=== PATIENT | male | born 1940 | race Caucasian/White ===

== ENCOUNTER 2018-02-28 12:00 | Emergency (ER) | payer BC ==
[2018-02-28] MEDS ORDERED: NS 1,000 ML IV ONE (12:32)
--- NOTE | 2018-02-28 12:32 | EDPHY ---
H & P Stated Complaint: dizziness x 2 days Time Seen by Provider: 02/28/18 12:32 HPI/ROS: HPI: This is a 77-year-old male who presents with Chief Complaint: Dizziness x2 days Location: Head Quality: Dizziness Duration: 2 days Signs and Symptoms: no fever, no nausea, no vomiting, no photophobia, no noise sensitivity, no neck stiffness, no ear pain, no tinnitus, no nasal congestion, no sinus pressure, no weakness, no radiation, no aura Timing: Acute, worse with changing positions from sitting to standing Severity: [id number] Context: Patient is generally healthy presents with 2 day history of the room spinning when he changes pressure positions from sitting to standing. He reports that he flew home on Friday from started [place], 2 week trip. He reports that Friday he felt fatigued consistent with jet leg but had no chest pain, palpitations, lightheadedness, vertigo at that time. He reports that he woke up in the middle the night unable to sleep went to get out of bed to taking Ambien and felt like the room was spinning. Symptoms resolved if he lies flat and improve with keeping still. Symptoms worsened with changing positions. denies any lower extremity swelling, chest pain or shortness of breath. Patient does complain of feeling cold and having night sweats but denies any fevers, cough, neck stiffness, headache. Modifying Factors: None Comment: ROS: see HPI Constitutional: No fever, no chills, no weight loss Eyes: No blurred vision Respiratory: No shortness of breath, no cough Cardiovascular: No chest pain, no palpitations Gastrointestinal: No nausea, no vomiting, no diarrhea, no hematemesis, no blood in stool Genitourinary: No dysuria, no blood in urine Extremities: No myalgias, no edema Neurologic: No weakness, no numbness Skin: No rashes, no petechiae Hematologic: No bruising, no bleeding MEDICAL/SURGICAL/SOCIAL HISTORY: Medical history: Insomnia Surgical history: Denies Social history: Never smoked. Family history noncontributory. CONSTITUTIONAL: Extremely polite and well-appearing elderly white male, appears younger than stated age, awake and alert, no obvious distress HEENT: Atraumatic and normocephalic, PERRL, EOMI. Nares patent; no rhinorrhea; no nasal mucosal edema. Tympanic membranes clear. Oropharynx clear, no exudate and moist pink mucosa. Airway patent. No lymphadenopathy. No meningismus. Cardiovascular: Normal S1/S2, regular rate, regular rhythm, without murmur rub or gallop. PULMONARY/CHEST: Symmetrical and nontender. Clear to auscultation bilaterally. Good air movement. No accessory muscle usage. ABDOMEN: Soft, nondistended, nontender, no rebound, no guarding, no peritoneal signs, no masses or organomegaly. No CVAT. EXTREMITIES: 2/2 pulses, strength 5/5, no deformities, no clubbing, no cyanosis or edema. NEUROLOGICAL: no focal neuro deficits. GCS 15. Dizziness reproduced with Greenfield- Hallpike maneuver. Nystagmus noted. SKIN: Warm and dry, no erythema. no rash. Good capillary refill. Source: Patient Exam Limitations: No limitations - Medical/Surgical History Hx Asthma: No Hx Chronic Respiratory Disease: No Hx Diabetes: No Hx Cardiac Disease: No Hx Renal Disease: No Hx Cirrhosis: No Hx Alcoholism: No Hx HIV/AIDS: No Hx Splenectomy or Spleen Trauma: No Other PMH: denies - Social History Smoking Status: Never smoked Constitutional: Initial Vital Signs Temperature (C) 36.8 C 02/28/18 12:02 Heart Rate 56 L 02/28/18 12:02 Respiratory Rate 18 02/28/18 12:02 Blood Pressure 149/77 H 02/28/18 12:02 O2 Sat (%) 97 02/28/18 12:02 O2 Delivery Mode Room Air Allergies/Adverse Reactions: Penicillins Allergy (Verified 02/28/18 12:01) Home Medications: Medication Instructions Recorded Ethan 02/28/18 Meclizine HCl [Meclizine HCl 25 mg 25 mg PO Q4 #12 tab 02/28/18 (RX,OTC)] Medical Decision Making - Diagnostics EKG Interpretation: 12 lead EKG: Indication: Dizziness Rhythm: Sinus bradycardia, rate 50 beats per minute Willis: Normal Intervals: Normal QRS: RBBB ST segments: Normal INTERPRETATION: 1st degree AV block, no acute ischemic changes The 12 lead EKG was interpreted by myself and with attending. ED Course/Re-evaluation: EKG, labs, IV fluids, orthostatics ordered Vital signs stable upon arrival. No systemic signs. No signs of otitis media, sinusitis, pharyngitis, viral syndrome. EKG my read with attending shows heart rate in the 50s with right bundle-branch block. no EKG for comparison. No acute ischemic changes. 1310: Notified that i-STAT troponin is negative Orthostatics negative Considered pulmonary embolism. Based on PERC rule cannot rule out PE secondary to the age so D-dimer ordered. Labs reviewed. No signs of leukocytosis/anemia/platelet dysfunction/HARRISON/ elevated LFTs/electrolyte imbalance/VTE/ACS. 1430: Reassessed patient who reports that he feels 100% better. Requests to be discharged home. Discharged with prescription for meclizine and Flonase. This patient was seen under the supervision of my secondary supervising physician. I evaluated care for this patient independently. Discussed this patient with Dr. Juarez who did not see the patient. Differential Diagnosis: Dizziness including but not limited to peripheral and central causes of vertigo , eustachian tube dysfunction, orthostatic causes including dehydration, and blood loss. - Data Points Laboratory Results: Laboratory Results 02/28/18 12:54 02/28/18 12:54 02/28/18 02/28/18 02/28/18 12:58 12:54 12:54 WBC RBC Hgb Hct MCV MCH MCHC RDW Plt Count MPV Neut % (Auto) Lymph % (Auto) [place] % (Auto) Eos % (Auto) Baso % (Auto) Nucleat RBC Rel Count Absolute Neuts (auto) Absolute Lymphs (auto) Absolute Monos (auto) Absolute Eos (auto) Absolute Basos (auto) Absolute Nucleated RBC Immature Gran % Immature Gran # D-Dimer 0.37 ug/mLFEU ug/mLFEU (0.00-0.50) Sodium 143 mEq/L mEq/L (135-145) Potassium 4.4 mEq/L mEq/L (3.3-5.0) Chloride 108 mEq/L mEq/L (97-110) Carbon Dioxide 27 mEq/l mEq/l (22-31) Anion Gap 8 mEq/L mEq/L (8-16) BUN 19 mg/dL mg/dL (7-23) Creatinine 0.6 mg/dL L mg/dL (0.7-1.3) Estimated GFR > 60 Glucose 98 mg/dL mg/dL (70-100) Calcium 8.9 mg/dL mg/dL (8.5-10.4) POC Troponin I 0.01 ng/mL ng/mL (0.00-0.08) 02/28/18 12:54 WBC 4.37 10^3/uL 10^3/uL (3.80-9.50) RBC 4.45 10^6/uL 10^6/uL (4.40-6.38) Hgb 13.8 g/dL g/dL (13.7-17.5) Hct 40.8 % % (40.0-51.0) MCV 91.7 fL fL (81.5-99.8) MCH 31.0 pg pg (27.9-34.1) MCHC 33.8 g/dL g/dL (32.4-36.7) RDW 13.2 % % (11.5-15.2) Plt Count 183 10^3/uL 10^3/uL (150-400) MPV 10.4 fL fL (8.7-11.7) Neut % (Auto) 54.3 % % (39.3-74.2) Lymph % (Auto) 33.6 % % (15.0-45.0) [place] % (Auto) 9.4 % % (4.5-13.0) Eos % (Auto) 1.8 % % (0.6-7.6) Baso % (Auto) 0.7 % % (0.3-1.7) Nucleat RBC Rel Count 0.0 % % (0.0-0.2) Absolute Neuts (auto) 2.37 10^3/uL 10^3/uL (1.70-6.50) Absolute Lymphs (auto) 1.47 10^3/uL 10^3/uL (1.00-3.00) Absolute Monos (auto) 0.41 10^3/uL 10^3/uL (0.30-0.80) Absolute Eos (auto) 0.08 10^3/uL 10^3/uL (0.03-0.40) Absolute Basos (auto) 0.03 10^3/uL 10^3/uL (0.02-0.10) Absolute Nucleated RBC 0.00 10^3/uL 10^3/uL (0-0.01) Immature Gran % 0.2 % % (0.0-1.1) Immature Gran # 0.01 10^3/uL 10^3/uL (0.00-0.10) D-Dimer Sodium Potassium Chloride Carbon Dioxide Anion Gap BUN Creatinine Estimated GFR Glucose Calcium POC Troponin I Medications Given: Discontinued Medications Sodium Chloride (Ns) 1,000 mls @ 0 mls/hr IV ONCE ONE; Wide Open PRN Reason: Protocol Stop: 02/28/18 12:33 Last Admin: 02/28/18 13:06 Dose: 1,000 mls Meclizine HCl (Meclizine Hcl) 25 mg PO EDNOW ONE Stop: 02/28/18 12:34 Last Admin: 02/28/18 13:06 Dose: 25 mg Point of Care Test Results: Chemistry 02/28/18 12:58 POC Troponin I 0.01 ng/mL ng/mL (0.00-0.08) Departure - Departure Disposition: Home, Routine, Self-Care Clinical Impression: Vertigo Condition: Good Instructions: Vertigo (ED), Dizziness (ED) Additional Instructions: Please use [id number] Flonase as needed for allergic rhinitis. Use [id number] antihistamines like Claritin, Katie, Zyrtec as needed for allergies. Use meclizine every 4-6 hours as needed for vertigo. Consume a minimum of 8-10 glasses of water or electrolyte fluid replacement drinks that include Gatorade, Powerade, Pedialyte. Follow-up with your primary care provider in 3-4 days if symptoms persist. Referrals: PCP Not In,Dictionary [Medical Doctor] - As per Instructions Prescriptions: Meclizine HCl [Meclizine HCl 25 mg (RX,OTC)] 25 mg PO Q4 #12 tab
[2018-02-28] MEDS ORDERED: MECLIZINE HCL 25 MG TAB PO ONE (12:33)
--- NOTE | 2018-02-28 12:58 | CPEKG ---
Heart Rate: 50 RR Interval: 1200 P-R Interval: 248 QRSD Interval: 128 QT Interval: 500 QTC Interval: 456 P Jackson: 46 QRS Jackson: 75 T Wave Jackson: 26 EKG Severity - ABNORMAL ECG - EKG Impression: SINUS RHYTHM EKG Impression: FIRST DEGREE AV BLOCK EKG Impression: RIGHT BUNDLE BRANCH BLOCK Electronically Signed By: Triston Villarreal 01-Mar-2018 07:39:22
[2018-02-28 14:02] LABS: PLATELET COUNT 183 10^3/uL (150-400)
[2018-02-28 14:47] VITALS: BP 127/65
== END 2018-02-28 14:45 | disposition home or self-care (01) ==
DX: R42 Dizziness and giddiness (principal); E86.9 Volume depletion, unspecified
CPT/HCPCS: 84484-PO